=== PATIENT | male | born 1960 | race Two or more races ===

== ENCOUNTER 2019-06-12 15:02 | Observation (INO) ==
[2019-06-12] MEDS ORDERED: FAMOTIDINE 20 MG/2 ML VIAL IV STA (16:22)
[2019-06-12] MEDS ORDERED: diphenhydrAMINE 50 MG/1 ML VIAL IV STA (16:22)
[2019-06-12] MEDS ORDERED: methylPREDNISolone SOD SUC 125 MG/2 ML VIAL IV STA (16:22)
[2019-06-12] MEDS ORDERED: SODIUM CHLORIDE 0.9% 1,000 ML IV STA (16:44)
[2019-06-12 17:17] LABS: Basophils % 0.3 % (0.0-0.8); Eosinophils % 0.1 % (0.00-10.9); Hematocrit 51.4 VOL% (42.0-52.0); Hemoglobin 17.3 GM/DL (14.0-18.0); Immature Granulocytes % 0.3 %; Immature Granulocytes Absolute 0.04 #; Lymphocytes # 2.5 10*3/uL (1.4-4.0); Lymphocytes % 18.9 % (21.2-54.2); Mean Corpuscular HGB Conc 33.7 GM/DL (32-36); Mean Corpuscular Volume 89.4 FL (87-102); Mean Platelet Volume 10.5 FL (9.6-12.0); Monocytes % 7.7 % (1.7-12.7); Neutrophils % 72.7 % (38.7-73.9); Platelet Count 137 T/CUMM (130-400); Red Blood Count 5.75 MC/CUMM (3.8-5.5); Red Cell Distribution Width 12.5 % (9.3-17.3); White Blood Count 13.4 T/CUMM (4-12)
[2019-06-12 17:23] LABS: PT Patient Result 10.7 SECS (9.6-12.2); Partial Thromboplastin Time < 21.0 SECS (20.8-36.0)
[2019-06-12 17:40] LABS: Albumin 3.6 G/DL (3.4-5.0); Bilirubin,Total 0.5 MG/DL (0.2-1.0); Total Protein 7.3 G/DL (6.4-8.3)
[2019-06-12] MEDS ORDERED: ENOXAPARIN 30 MG/0.3 ML SYRINGE SUBCUT STA (18:25)
[2019-06-12 19:58] LABS: Apearance,Urine CLEAR (Clear); Bilirubin,Urine Negative (Negative); Blood, Urine Large mg/dL (Negative); Glucose,Urine (UA) Negative (Negative); Hyaline Casts,Urine 6 /LPF (0-3); Ketones,Urine Negative (Negative); Mucus,Urine Few /LPF (Occasional); Nitrite,Urine Negative (Negative); Protein,Urine Negative; RBC,Urine 221 /HPF (0-4); Urine Color Yellow (Yellow); Urine Specific Gravity 1.023 (1.001-1.035); Urine Urobilinogen < 2.0 EU/DL (0.2-1.0)
[2019-06-12] MEDS: diphenhydrAMINE CAP 25 MG CAPSULE PO SCH (22:07)
[2019-06-13] MEDS ORDERED: methylPREDNISolone SOD SUC 125 MG/2 ML VIAL ONE (00:45)
[2019-06-13] MEDS ORDERED: ACETAMINOPHEN 325 MG TABLET PO PRN (00:53)
[2019-06-13] MEDS ORDERED: methylPREDNISolone SOD SUC 125 MG/2 ML VIAL IV ONE (01:23)
[2019-06-13] MEDS: SODIUM CHLORIDE 0.9% 1,000 ML IV SCH ×2 (02:14→10:08)
[2019-06-13] MEDS: diphenhydrAMINE CAP 25 MG CAPSULE PO SCH ×2 (03:32→10:06)
[2019-06-13 05:41] LABS: Hematocrit 44.6 VOL% (42.0-52.0); Hemoglobin 14.7 GM/DL (14.0-18.0); Immature Granulocytes % 0.4 %; Immature Granulocytes Absolute 0.03 #; Lymphocytes % 14.6 % (21.2-54.2); Mean Corpuscular Volume 90.3 FL (87-102); Mean Platelet Volume 10.2 FL (9.6-12.0); Monocytes % 0.6 % (1.7-12.7); Neutrophils % 84.4 % (38.7-73.9); Platelet Count 184 T/CUMM (130-400); Red Blood Count 4.94 MC/CUMM (3.8-5.5); Red Cell Distribution Width 12.5 % (9.3-17.3); White Blood Count 7.1 T/CUMM (4-12)
[2019-06-13 06:21] LABS: Hypochromasia Slight; Microcytosis 1+; Ovalocytes Slight; Platelet Estimate Adequate
[2019-06-13 06:32] LABS: Albumin 3.1 G/DL (3.4-5.0); Bilirubin,Total 0.6 MG/DL (0.2-1.0); Calcium 8.1 MG/DL (8.5-10.1); Osmolality,Calculated 286.5 MOS/KG (273-304); Total Protein 6.3 G/DL (6.4-8.3)
[2019-06-13 16:06] VITALS: BP 139/75
== END 2019-06-13 17:00 | disposition home or self-care (01) ==
LOC: N.ED 15:02 → N.EDINP 15:02 → N.5E 21:20
PROVIDERS: ADMIT Phlebology; ATTEND Phlebology

== ENCOUNTER 2021-08-10 14:52 | Observation (INO) ==
[2021-08-10] MEDS ORDERED: ONDANSETRON 4 MG/2 ML VIAL IV STA (15:14)
[2021-08-10] MEDS ORDERED: SODIUM CHLORIDE 0.9% 1,000 ML IV STA (15:14)
[2021-08-10] MEDS ORDERED: HYDROmorphone 1 MG/1 ML SYRINGE IV STA (15:14)
[2021-08-10] MEDS ORDERED: cefTRIAXone 1,000 MG in SODIUM CHLORIDE 0.9% 100 ML IV ONE (15:49)
[2021-08-10] MEDS ORDERED: PROMETHAZINE 25 MG/1 ML VIAL IM PRN (15:51)
[2021-08-10] MEDS ORDERED: ONDANSETRON 4 MG/2 ML VIAL IV PRN (15:51)
[2021-08-10] MEDS ORDERED: HYDROmorphone 1 MG/1 ML SYRINGE IV PRN (15:51)
[2021-08-10] MEDS ORDERED: oxyCODONE/ACETAMINOPHEN 5-325 MG TABLET PO PRN (15:51)
[2021-08-10] MEDS ORDERED: cefTRIAXone 1,000 MG VIAL ONE (15:53)
[2021-08-10] MEDS ORDERED: SODIUM CHLORIDE 0.9% 1,000 ML IV SCH (16:00)
[2021-08-10] MEDS ORDERED: propofoL 200 MG/20 ML VIAL IV ONE (16:08)
[2021-08-10] MEDS ORDERED: MIDAZOLAM 2 MG/2 ML VIAL ONE (16:08)
[2021-08-10] MEDS ORDERED: ROCURONIUM 50 MG/5 ML VIAL IV ONE (16:08)
[2021-08-10] MEDS ORDERED: fentaNYL 100 MCG/2 ML VIAL ONE (16:08)
[2021-08-10] MEDS ORDERED: SEVOFLURANE 1 UNIT/15 MINUTE INH ONE (16:08)
[2021-08-10] MEDS ORDERED: ONDANSETRON 4 MG/2 ML VIAL ONE (16:08)
[2021-08-10] MEDS ORDERED: LIDOCAINE 2% 5 ML VIAL ONE (16:08)
[2021-08-10] MEDS ORDERED: SUCCINYLCHOLINE 200 MG/10 ML VIAL ONE (16:08)
[2021-08-10 16:21] LABS: Basophils % 0.4 % (0.0-0.8); Eosinophils # 0.1 10*3/uL (0.0-0.87); Eosinophils % 1.2 % (0.00-10.9); Hematocrit 43.6 VOL% (42.0-52.0); Hemoglobin 14.4 GM/DL (14.0-18.0); Immature Granulocytes % 0.3 %; Immature Granulocytes Absolute 0.03 #; Lymphocytes # 1.4 10*3/uL (1.4-4.0); Lymphocytes % 14.2 % (21.2-54.2); Mean Corpuscular Volume 87.7 FL (87-102); Mean Platelet Volume 9.7 FL (9.6-12.0); Monocytes % 6.1 % (1.7-12.7); Neutrophils % 77.8 % (38.7-73.9); Platelet Count 176 T/CUMM (130-400); Red Blood Count 4.97 MC/CUMM (3.8-5.5); Red Cell Distribution Width 12.9 % (9.3-17.3); White Blood Count 9.9 T/CUMM (4-12)
[2021-08-10 16:40] LABS: Calcium 9.1 MG/DL (8.5-10.1); Potassium 4.1 MMOL/L (3.5-5.1)
[2021-08-10] MEDS ORDERED: GLUCAGON 1 MG VIAL IM PRN (17:06)
[2021-08-10] MEDS ORDERED: DEXTROSE 10% 250 ML BAG IV PRN (17:08)
[2021-08-10] MEDS ORDERED: LABETALOL 100 MG/20 ML VIAL IV ONE (17:47)
[2021-08-10] MEDS: ACETAMINOPHEN 325 MG TABLET PO SCH ×2 (20:49→22:15)
[2021-08-10] MEDS: TAMSULOSIN 0.4 MG CAPSULE PO SCH (20:49)
[2021-08-10] MEDS ORDERED: ATORVASTATIN 10 MG TABLET PO SCH (21:00)
[2021-08-10] MEDS: INSULIN LISPRO 100 UNIT/ML SUBCUT SCH (21:14)
[2021-08-11] MEDS: ACETAMINOPHEN 325 MG TABLET PO SCH ×2 (03:21→09:05)
[2021-08-11 03:52] LABS: Bilirubin,Urine Small mg/dL (Negative); Blood, Urine Large mg/dL (Negative); Glucose,Urine (UA) Negative (Negative); Ketones,Urine Negative (Negative); Nitrite,Urine Positive (Negative); Protein,Urine 100 mg/dL (Negative); RBC,Urine 7214 /HPF (0-4); Urine Appearance Slightly Cloudy (Clear); Urine Color Red (Yellow); Urine Urobilinogen 0.2 eU/dL (<2.0); Urine pH 5.5 (4.5-8.0)
[2021-08-11 05:52] LABS: Basophils % 0.3 % (0.0-0.8); Eosinophils # 0.2 10*3/uL (0.0-0.87); Immature Granulocytes % 0.3 %; Immature Granulocytes Absolute 0.02 #; Lymphocytes # 1.8 10*3/uL (1.4-4.0); Lymphocytes % 23.9 % (21.2-54.2); Mean Corpuscular HGB Conc 33.1 GM/DL (32-36); Mean Corpuscular Volume 89.6 FL (87-102); Mean Platelet Volume 10.2 FL (9.6-12.0); Monocytes % 9.1 % (1.7-12.7); Neutrophils % 64.4 % (38.7-73.9); Platelet Count 145 T/CUMM (130-400); Red Blood Count 4.02 MC/CUMM (3.8-5.5); White Blood Count 7.4 T/CUMM (4-12)
[2021-08-11 05:54] LABS: Calcium 8.2 MG/DL (8.5-10.1); Osmolality,Calculated 282.4 MOS/KG (273-304); Potassium 3.8 MMOL/L (3.5-5.1)
[2021-08-11 05:55] LABS: Hemoglobin 11.9 GM/DL (14.0-18.0)
[2021-08-11] MEDS: TAMSULOSIN 0.4 MG CAPSULE PO SCH (08:54)
[2021-08-11] MEDS: INSULIN LISPRO 100 UNIT/ML SUBCUT SCH ×2 (12:15→12:42)
[2021-08-11 13:16] VITALS: BP 104/71
[2021-08-11] MEDS ORDERED: cefTRIAXone 1,000 MG in SODIUM CHLORIDE 0.9% 100 ML IV SCH (16:00)
== END 2021-08-11 14:15 | disposition home or self-care (01) ==
LOC: N.ED 14:52 → N.EDINP 14:52 → N.5E 16:30
PROVIDERS: ADMIT Surgery; ATTEND Surgery